=== PATIENT | female | born 1990 | race Caucasian/White ===

== ENCOUNTER 2018-06-10 02:10 | Inpatient (IN) | payer OTHER ==
[2018-06-10] MEDS ORDERED: Ondansetron 4 MG/2 ML SDV IVPUSH PRN ×2 (19:46→20:00)
[2018-06-10] MEDS ORDERED: Nalbuphine 20 MG/ML 1 ML Syringe IVPUSH PRN (19:46)
[2018-06-10] MEDS ORDERED: Sodium Chloride 0.9% 10 ML Syringe FLUSH PRN (19:46)
[2018-06-10] MEDS ORDERED: Bupivacaine/fentaNYL/NS 100 ML Bag EPIDUR SCH (20:00)
[2018-06-10] MEDS ORDERED: fentaNYL 100 MCG/2 ML SDV EPIDUR PRN (20:00)
[2018-06-10] MEDS ORDERED: ePHEDrine 50 MG/ML SDV IVPUSH PRN (20:00)
[2018-06-10] MEDS ORDERED: diphenhydrAMINE 50 MG/ML SDV IVPUSH PRN (20:00)
[2018-06-10] MEDS ORDERED: fentaNYL 100 MCG/2 ML SDV ONE (20:12)
--- NOTE | 2018-06-10 20:16 | PCM.HP ---
H&P History of Present Illness - General Date of Service: 06/10/18 Admit Problem/Dx: Admission Diagnosis/Problem Admission Diagnosis/Problem Normal Source of Information: Patient History Limitations: Reports: No Limitations - History of Present Illness Initial Comments - Free Text/Narative: Rico is a 27 y/o white female admitted for labor on 06/10/2018. Gestational age 39-3/7 weeks. LOS is set at 06/14/2018 based on LMP of 2016 and ultrasounds on 11/05/2017 and 01/26/2018. She is accompanied by daughter and significant other, Ravin. Patient is a candidate for , which she desires. Risks and benefits have been explained and patient understands and wishes to proceed. Previous two deliveries include the followin. Female born 09/15/2010 at 38 weeks gestational age in [place]. weight was 6 lbs 15 oz. Child is named Adrien. 2. Female born 03/12/2011 via at 38 weeks gestational age in [place]. C- section done due to active HSV infection. weight was 6 lbs 11 oz. Child was adopted. LMP reported on 09/01/2017. Patient was using no control at the time of conception. care was initiated on 11/04/2017. She denies any use of alcohol, tobacco, or other drugs during the . Pre- BMI was 20.8 with a weight of 121 lb. She has gained 49 lb, now weighing 170.6 lb. Fundal height and growth has been appropriate throughout course. Fundal height was 38.5 cm at last appointment, earlier today 2017. At that time cervix was dilated 2 cm, 80% effaced, soft, -3, mid position. Baby was in vertex position. Patient has been taking HSV prophylaxis since 36 weeks and denies any signs or symptoms of active infection. course has been otherwise uneventful, with 1 hr GTT being negative, GBS being negative, and no other complications. Laboratory testing showed blood type to be O-. She is rubella immune. RPR is nonreactive. Hepatitis B surface antigen and HIV assays were both negative. Chlamydia and gonorrhea both negative. Initial labs at first visit 11/04 showed hemoglobin 13.3 and platelets 240,000. Labs on 04/09/2018 showed hemoglobin 11.4 and platelets 219,000. GBS screening was negative. Allergies: None Medications: 1. Acyclovir 400 mg TID 2. vitamin tablet - stopped taking about one week ago Past Medical History: 1. Post- depression 2. Anxiety 3. Asthma 4. Genital HSV 5. Migraines Past Surgical History: 1. Family History: Mother - from an asthma attack when patient was a baby Father - currently has MS and has a history of [place] and cardiac issues for which he has had surgeries MGM - alive and well MGF - alive and well PGM - , unknown cause PGF - , unknown cause Siblings are all alive and well. No familial bleeding or clotting disorders or issues with anesthesia. Onset of Symptoms: Reports: Today - Related Data Allergies/Adverse Reactions: Allergies Allergy/AdvReac Type Severity Reaction Status Date / Time No Known Allergies Allergy Verified 06/10/18 20:12 Home Medications: Home Meds Acyclovir TID 06/10/18 [History] Past Medical History Respiratory History: Reports: Asthma Neurological History: Reports: Migraines Psychiatric History: Reports: Anxiety, Depression (post- depression) - Infectious Disease History Infectious Disease History: Reports: Herpes (Genital HSV) - Past Surgical History Female Surgical History: Reports: Section Social & Family History - Family History Cardiac: Reports: [place] (Patient's father has a history of [place] and cardiac issues) Respiratory: Reports: Asthma (Patient's mother from a severe asthma attack when patient was a baby) Neurological: Reports: MS (Patient's father has MS) - Living Situation & Occupation Living situation: Reports: with Significant Other (Ravin) Occupation: Unemployed (Currently not working) Social History Comment: Living in [place] H&P Review of Systems - Review of Systems: Review Of Systems: See Below General: Reports: No Symptoms, Fever (reports feeling febrile upon arrival to the hospital - temperature WNL was measured and this has since subsided.) HEENT: Reports: No Symptoms Pulmonary: Reports: No Symptoms. Denies: Shortness of Breath Cardiovascular: Reports: No Symptoms. Denies: Chest Pain, Palpitations Gastrointestinal: Reports: Nausea, Other (nausea, acid reflux earlier today) Genitourinary: Reports: No Symptoms Musculoskeletal: Reports: No Symptoms Skin: Reports: No Symptoms Psychiatric: Reports: No Symptoms Neurological: Reports: No Symptoms Hematologic/Lymphatic: Reports: No Symptoms Immunologic: Reports: No Symptoms Exam - Exam Exam: See Below - Exam General: Alert, Oriented, Cooperative Neck: Supple, Trachea Midline, 2 Lungs: Clear to Auscultation, Normal Respiratory Effort Cardiovascular: Regular Rate, Regular Rhythm GI/Abdominal Exam: Normal Bowel Sounds (Female) Exam: Normal External Exam, Cervical Dilatation (5 cm) Extremities: Normal Inspection, No Pedal Edema Peripheral Pulses: 4+: Radial (L), Radial (R), Posterior Tibial (L), Posterior Tibial (R) Skin: Warm, Dry, Intact Psychiatric: Alert, Normal Affect, Normal Mood - Patient Data Lab Results Last 24 hrs: Laboratory Results - last 24 hr 06/10/18 Range/Units 19:55 WBC 13.04 H (3.98-10.04) K/mm3 RBC 3.97 L (3.98-5.22) M/mm3 Hgb 11.8 (11.2-15.7) gm/L Hct 35.1 (34.1-44.9) % MCV 88.4 (79.4-94.8) fl MCH 29.7 (25.6-32.2) pg MCHC 33.6 (32.2-35.5) g/dl RDW Std Deviation 44.1 (36.4-46.3) fL Plt Count 196 (182-369) K/mm3 MPV 9.9 (9.4-12.3) fl Neut % (Auto) 78.9 H (34.0-71.1) % Lymph % (Auto) 11.7 L (19.3-51.7) % [place] % (Auto) 8.1 (4.7-12.5) % Eos % (Auto) 0.6 L (0.7-5.8) Baso % (Auto) 0.2 (0.1-1.2) % Neut # (Auto) 10.29 H (1.56-6.13) K/mm3 Lymph # (Auto) 1.52 (1.18-3.74) K/mm3 [place] # (Auto) 1.06 H (0.24-0.36) K/mm3 Eos # (Auto) 0.08 (0.04-0.36) K/mm3 Baso # (Auto) 0.02 (0.01-0.08) K/mm3 Result Diagrams: 06/10/18 19:55 Problem List Initiated/Reviewed/Updated: Yes Orders Last 24hrs: Active Orders 24 hr Category Date Time Status Patient Status [ADT] Routine ADT 06/10/18 19:46 Active Activity as Tolerated [RC] PFP Care 06/10/18 19:46 Active Communication Order [RC] ASDIRECTED Care 06/10/18 19:46 Active Communication Order [RC] ASDIRECTED Care 06/10/18 19:46 Active Heart Tones [RC] ASDIRECTED Care 06/10/18 19:47 Active Non Stress Test [RC] PER UNIT ROUTINE Care 06/10/18 19:46 Active Notify Provider [RC] ASDIRECTED Care 06/10/18 20:00 Active Notify Provider [RC] PFP Care 06/10/18 19:46 Active Notify Provider [RC] PRN Care 06/10/18 19:46 Active Peripheral IV Care [RC] . DIRECTED Care 06/10/18 19:47 Active Pump Management, Intrathecal [RC] ASDIRECTED Care 06/10/18 19:47 Active Verify Patient Consent Obtain [RC] ASDIRECTED Care 06/10/18 19:46 Active Vital Signs [RC] PER UNIT ROUTINE Care 06/10/18 19:46 Active Clear Liquid Diet [DIET] Diet 06/10/18 Dinner Active RAPID PLASMA REAGIN,RPR [CHEM] Routine Lab 06/10/18 19:46 Ordered TYPE AND SCREEN [BBK] Stat Lab 06/10/18 19:55 Received Bupivacaine/fentaNYL/NS [fentaNYL/Bupivacaine/NS 2 MCG- Med 06/10/18 20:00 Pending 0.125% 100 ML] 100 ml EPIDUR ASDIRECTED Lactated Ringers [Ringers, Lactated] 1,000 ml Med 06/10/18 20:00 Ordered IV ASDIRECTED Nalbuphine [Nubain] Med 06/10/18 19:46 Ordered 10 mg IVPUSH Q2H PRN Ondansetron [Zofran] Med 06/10/18 20:00 Ordered 4 mg IVPUSH ONETIME PRN Ondansetron [Zofran] Med 06/10/18 19:46 Ordered 4 mg IVPUSH Q4H PRN Sodium Chloride 0.9% [Saline Flush] Med 06/10/18 19:46 Ordered 10 ml FLUSH ASDIRECTED PRN diphenhydrAMINE [Benadryl] Med 06/10/18 20:00 Ordered 25 mg IVPUSH Q6H PRN ePHEDrine [ePHEDrine Sulfate] Med 06/10/18 20:00 Ordered 5 mg IVPUSH ASDIRECTED PRN fentaNYL [Sublimaze] Med 06/10/18 20:00 Ordered 100 mcg EPIDUR ONETIME PRN Electronic Heart Tones Ext w TOCO [WOMSER] Oth 06/10/18 19:46 Ordered Routine Electronic Heart Tones Internal [WOMSER] Per Unit Oth 06/10/18 19:46 Ordered Routine Peripheral IV Insertion Adult [OM.PC] Routine Oth 06/10/18 19:46 Ordered Resuscitation Status Routine Resus Stat 06/10/18 19:46 Ordered Medication Orders Diphenhydramine HCl (Benadryl) 25 mg IVPUSH Q6H PRN PRN Reason: Pruritis Ephedrine Sulfate (Ephedrine Sulfate) 5 mg IVPUSH ASDIRECTED PRN PRN Reason: Hypotension Fentanyl (Sublimaze) 100 mcg EPIDUR ONETIME PRN PRN Reason: Pain Fentanyl/Bupivacaine HCl (Fentanyl/Bupivacaine/Ns 2 Mcg-0.125% 100 Ml) 100 ml EPIDUR ASDIRECTED CARLOS Lactated Ringer's (Ringers, Lactated) 1,000 mls @ 100 mls/hr IV ASDIRECTED CARLOS Nalbuphine HCl (Nubain) 10 mg IVPUSH Q2H PRN PRN Reason: pain Ondansetron HCl (Zofran) 4 mg IVPUSH Q4H PRN PRN Reason: Nausea/Vomiting Ondansetron HCl (Zofran) 4 mg IVPUSH ONETIME PRN PRN Reason: Nausea/Vomiting Sodium Chloride (Saline Flush) 10 ml FLUSH ASDIRECTED PRN PRN Reason: Keep Vein Open Assessment/Plan Comment:: Assessment: 1. 39-3/7 week female presents in active labor with cervix dilated 5cm. 2. History of previous due to active HSV infection 3. HSV prophylaxis since 36 weeks - 400 mg acyclovir TID. No signs or symptoms of HSV. 4. GBS - 5. Intends to bottle feed 6. Blood type O- 7. Rubella immune Plan: 1. Anticipate 2. Epidural prn for analgesia 3. CBC, type, and screen 4. Near continuous monitoring 5. Gather consent for and 6. Alert surgery and anesthesia for possibility of 7. Routine post- care following delivery Donna Barrera, MS-3. Dr. Julio Bailey has examined the patient and reviewed the note.
--- NOTE | 2018-06-10 20:42 | PCM.PREANE ---
Preanesthetic Assessment - Anesthesia/Transfusion/Family Hx Anesthesia History: Prior Anesthesia Without Reaction Family History of Anesthesia Reaction: No - Review of Systems General: No Symptoms Pulmonary: No Symptoms, Other (Asthma. Albuterol inhaler PRN. ) Cardiovascular: No Symptoms Gastrointestinal: No Symptoms Neurological: No Symptoms Other: Reports: Depression, Anxiety - Physical Assessment Pulse: 105 O2 Sat by Pulse Oximetry: 99 Respiratory Rate: 18 Blood Pressure: 128/70 Temperature: 37.3 C Height: 1.63 m Weight: 77.247 kg ASA Class: 2 Mental Status: Alert & Oriented x3 Airway Class: Mallampati = 2 Dentition: Reports: Normal Dentition Thyro-Mental Finger Breadths: 3 Mouth Opening Finger Breadths: 3 ROM/Head Extension: Full Lungs: Clear to Auscultation, Normal Respiratory Effort Cardiovascular: Regular Rate, Regular Rhythm - Lab Values: Laboratory Last Values WBC 13.04 K/mm3 (3.98-10.04) H 06/10/18 19:55 RBC 3.97 M/mm3 (3.98-5.22) L 06/10/18 19:55 Hgb 11.8 gm/L (11.2-15.7) 06/10/18 19:55 Hct 35.1 % (34.1-44.9) 06/10/18 19:55 MCV 88.4 fl (79.4-94.8) 06/10/18 19:55 MCH 29.7 pg (25.6-32.2) 06/10/18 19:55 MCHC 33.6 g/dl (32.2-35.5) 06/10/18 19:55 RDW Std Deviation 44.1 fL (36.4-46.3) 06/10/18 19:55 Plt Count 196 K/mm3 (182-369) 06/10/18 19:55 MPV 9.9 fl (9.4-12.3) 06/10/18 19:55 Neut % (Auto) 78.9 % (34.0-71.1) H 06/10/18 19:55 Lymph % (Auto) 11.7 % (19.3-51.7) L 06/10/18 19:55 [place] % (Auto) 8.1 % (4.7-12.5) 06/10/18 19:55 Eos % (Auto) 0.6 (0.7-5.8) L 06/10/18 19:55 Baso % (Auto) 0.2 % (0.1-1.2) 06/10/18 19:55 Neut # (Auto) 10.29 K/mm3 (1.56-6.13) H 06/10/18 19:55 Lymph # (Auto) 1.52 K/mm3 (1.18-3.74) 06/10/18 19:55 [place] # (Auto) 1.06 K/mm3 (0.24-0.36) H 06/10/18 19:55 Eos # (Auto) 0.08 K/mm3 (0.04-0.36) 06/10/18 19:55 Baso # (Auto) 0.02 K/mm3 (0.01-0.08) 06/10/18 19:55 - Allergies Allergies/Adverse Reactions: Allergies Allergy/AdvReac Type Severity Reaction Status Date / Time No Known Allergies Allergy Verified 06/10/18 20:12 - Acknowledgements Anesthesia Type Planned: Epidural Pt an Appropriate Candidate for the Planned Anesthesia: Yes Alternatives and Risks of Anesthesia Discussed w Pt/Guardian: Yes Pt/Guardian Understands and Agrees with Anesthesia Plan: Yes PreAnesthesia Questionnaire Respiratory History: Reports: Asthma Neurological History: Reports: Migraines Psychiatric History: Reports: Anxiety, Depression - Infectious Disease History Infectious Disease History: Reports: Herpes (Genital HSV) - HOME MEDS Home Medications: Home Meds Acyclovir TID 06/10/18 [History] Vit No.129/Iron/FA [ Tablet] 1 each PO 06/10/18 [History] - CURRENT (IN HOUSE) MEDS Current Meds: Current Medications Diphenhydramine HCl (Benadryl) 25 mg IVPUSH Q6H PRN PRN Reason: Pruritis Ephedrine Sulfate (Ephedrine Sulfate) 5 mg IVPUSH ASDIRECTED PRN PRN Reason: Hypotension Fentanyl (Sublimaze) 100 mcg EPIDUR ONETIME PRN PRN Reason: Pain Last Admin: 06/10/18 20:36 Dose: 100 mcg Fentanyl/Bupivacaine HCl (Fentanyl/Bupivacaine/Ns 2 Mcg-0.125% 100 Ml) 100 ml EPIDUR ASDIRECTED CARLOS Last Admin: 06/10/18 20:36 Dose: 100 ml Lactated Ringer's (Ringers, Lactated) 1,000 mls @ 100 mls/hr IV ASDIRECTED CARLOS Nalbuphine HCl (Nubain) 10 mg IVPUSH Q2H PRN PRN Reason: pain Ondansetron HCl (Zofran) 4 mg IVPUSH Q4H PRN PRN Reason: Nausea/Vomiting Ondansetron HCl (Zofran) 4 mg IVPUSH ONETIME PRN PRN Reason: Nausea/Vomiting Sodium Chloride (Saline Flush) 10 ml FLUSH ASDIRECTED PRN PRN Reason: Keep Vein Open
[2018-06-10] MEDS: Lactated Ringers 1,000 ML IV SCH ×3 (21:08→21:10)
[2018-06-10] MEDS ORDERED: Bupivacaine 0.25% 10 ML SDV ONE (22:00)
[2018-06-10] MEDS ORDERED: Aluminum Hydroxide/Magnesium Hydroxide/Simethicone Susp 30 ML Cup PO PRN (22:10)
[2018-06-10] MEDS ORDERED: Oxytocin/Lactated Ringers 10 UNIT/1,000 ML BAG IV SCH (23:30)
--- NOTE | 2018-06-11 02:39 | PCM.SN ---
- Free Text/Narrative Note: Rico is a 27-year-old 3 now para 3003 white female who was admitted on the evening of 06/10/2018 in active labor. She is petey every 3-5 minutes and was dilated to 5 cm. She had a previous vaginal and last was delivered by section for HSV positive findings at the time of onset of labor. With this labor she slowly progressed to complete cervical dilation and at 0210 hours patient delivered a viable, vidales, female infant with Apgars of 8 and 9, weight of 3560 g (7 pounds 13.6 ounces), length of 20.4 inches in an anterior position. Over an intact perineum. The baby was placed on mom's abdomen. The cord was clamped 2 and then was cut by the baby's father. Cord blood was obtained. The umbilical cord had 3 vessels. Pitocin per IV was started after delivery of baby to facilitate increase in uterine tone and decreased likelihood of bleeding. The placenta delivered in a [place] presentation,. Complete and intact and was discarded per patient desire. Estimated blood loss was 100 mL. Patient plans to bottlefeed. Condition: Good
[2018-06-11] MEDS ORDERED: Lanolin 100% Cream 7 GM Tube TOP PRN (02:53)
[2018-06-11] MEDS ORDERED: Witch Hazel Medicated Pads 100/Jar TOP PRN (02:53)
[2018-06-11] MEDS ORDERED: Acetaminophen 325 MG Tab PO PRN (02:53)
[2018-06-11] MEDS ORDERED: Docusate Sodium 100 MG Cap PO PRN (02:53)
[2018-06-11] MEDS ORDERED: Benzocaine/Menthol 20%-0.5% Spray 56 GM Canister TOP PRN (02:53)
[2018-06-11] MEDS: Ibuprofen 600 MG Tab PO PRN ×3 (03:23→20:52)
[2018-06-11] MEDS ORDERED: Oxytocin/Lactated Ringers 10 UNIT/1,000 ML BAG IV SCH ×2 (03:30)
--- NOTE | 2018-06-11 09:48 | PCM.SN ---
- Free Text/Narrative Note: note: Patient is doing well in the period. Minimal lochia, voiding well, ambulated without problems. Nursing without concerns. Patient is afebrile, vital signs are stable Abdomen is flat, soft, uterus is below the umbilicus and is firm and nontender. Legs are nontender. Assessment: recovery going well. Plan: Routine care. Patient be discharged home within the next 24-48 hours.
[2018-06-12] MEDS: Ibuprofen 600 MG Tab PO PRN (02:58)
--- NOTE | 2018-06-12 10:24 | PCM.DCSUM1 ---
Discharge Summary - Hospital Course Free Text/Narrative:: Rico is a 27-year-old 3 now para 3003 white female who was admitted on the evening of 06/10/2018 in active labor. She is petey every 3-5 minutes and was dilated to 5 cm. She had a previous vaginal and last was delivered by section for HSV positive findings at the time of onset of labor. With this labor she slowly progressed to complete cervical dilation and at 0210 hours patient delivered a viable, vidales, female with Apgars of 8 and 9, weight of 3560 g (7 pounds 13.6 ounces), length of 20.4 inches in an anterior position. Over an intact perineum. The baby was placed on mom's abdomen. The cord was clamped 2 and then was cut by the baby's father. Cord blood was obtained. The umbilical cord had 3 vessels. Pitocin per IV was started after delivery of baby to facilitate increase in uterine tone and decreased likelihood of bleeding. The placenta delivered in a [place] presentation,. Complete and intact and was discarded per patient desire. Estimated blood loss was 100 mL. Patient plans to bottlefeed. Condition: Good HPI Initial Comments: Rico is a 27-year-old 3 now para 3003 white female who was admitted on the evening of 06/10/2018 in active labor. She is petey every 3-5 minutes and was dilated to 5 cm. She had a previous vaginal and last was delivered by section for HSV positive findings at the time of onset of labor. With this labor she slowly progressed to complete cervical dilation and at 0210 hours patient delivered a viable, vidales, female infant with Apgars of 8 and 9, weight of 3560 g (7 pounds 13.6 ounces), length of 20.4 inches in an anterior position. Over an intact perineum. The baby was placed on mom's abdomen. The cord was clamped 2 and then was cut by the baby's father. Cord blood was obtained. The umbilical cord had 3 vessels. Pitocin per IV was started after delivery of baby to facilitate increase in uterine tone and decreased likelihood of bleeding. The placenta delivered in a [place] presentation,. Complete and intact and was discarded per patient desire. Estimated blood loss was 100 mL. Patient plans to bottlefeed. Condition: Good Brief History: Rico is a 27-year-old 3 now para 3003 white female who was admitted on the evening of 06/10/2018 in active labor. She is petey every 3-5 minutes and was dilated to 5 cm. She had a previous vaginal and last was delivered by section for HSV positive findings at the time of onset of labor. With this labor she slowly progressed to complete cervical dilation and at 0210 hours patient delivered a viable, vidales, female with Apgars of 8 and 9, weight of 3560 g (7 pounds 13.6 ounces), length of 20.4 inches in an anterior position. Over an intact perineum. The baby was placed on mom's abdomen. The cord was clamped 2 and then was cut by the baby's father. Cord blood was obtained. The umbilical cord had 3 vessels. Pitocin per IV was started after delivery of baby to facilitate increase in uterine tone and decreased likelihood of bleeding. The placenta delivered in a [place] presentation,. Complete and intact and was discarded per patient desire. Estimated blood loss was 100 mL. Patient plans to bottlefeed. Condition : Good Diagnosis: Stroke: No - Discharge Data Discharge Date: 06/12/18 Discharge Disposition: Home, Self-Care 01 Condition: Good - Discharge Diagnosis/Problem(s) (1) (vaginal after ) SNOMED Code(s): 626154679 ICD Code: O34.219 - MATERNAL CARE FOR UNSP TYPE SCAR FROM PREVIOUS DEL Status: Acute Current Visit: Yes (2) H/O section complicating SNOMED Code(s): 267006272, 615547919 ICD Code: O34.219 - MATERNAL CARE FOR UNSP TYPE SCAR FROM PREVIOUS DEL Status: Acute Current Visit: Yes (3) 39 weeks gestation of SNOMED Code(s): 24487523 ICD Code: Z3A.39 - 39 WEEKS GESTATION OF Status: Acute Current Visit: Yes - Patient Summary/Data Complications: None Consults: None Hospital Course: Uneventful - Patient Instructions Diet: Usual Diet as Tolerated Driving: May Drive Today Showering/Bathing: May Shower Notify Provider of: Fever, Increased Pain, Swelling and Redness, Drainage, Nausea and/or Vomiting - Discharge Plan *PRESCRIPTION DRUG MONITORING PROGRAM REVIEWED*: Not Applicable *COPY OF PRESCRIPTION DRUG MONITORING REPORT IN PATIENT EVIE: Not Applicable Home Medications: Home Meds Acyclovir TID 06/10/18 [History] Acetaminophen [Tylenol] 650 mg PO Q4H PRN tablet 06/12/18 [Rx] Benzocaine/Menthol [Dermoplast Pain Relief [place]] 1 spray TOP ASDIRECTED PRN canister 06/12/18 [Rx] Docusate Sodium [Colace] 100 mg PO BID PRN cap 06/12/18 [Rx] Ibuprofen [Motrin] 600 mg PO Q4H PRN tablet 06/12/18 [Rx] Esequiel Rae [Tucks] 1 pad TOP ASDIRECTED PRN pad 06/12/18 [Rx] Patient Handouts: Home Care Instructions for Mom Referrals: Julio Bailey MD [Primary Care Provider] - (Patient to call Thursday to make an appointment for 2 weeks follow-up check) - Discharge Summary/Plan Comment DC Time >30 min.: No - Patient Data Vitals - Most Recent: Last Vital Signs Temp 97.2 F 06/12/18 09:14 Pulse 93 06/12/18 09:14 Resp 18 06/12/18 09:14 BP 115/75 06/12/18 09:14 Pulse Ox 96 06/12/18 09:14 Weight - Most Recent: 170 lb 4.8 oz I&O - Last 24 hours: Intake & Output 06/11/18 06/12/18 06/12/18 22:59 06:59 14:59 Intake Total 240 Balance 240 Lab Results - Last 24 hrs: Laboratory Results - last 24 hr 06/10/18 06/12/18 Range/Units 19:55 05:50 WBC 11.66 H (3.98-10.04) K/mm3 RBC 3.72 L (3.98-5.22) M/mm3 Hgb 10.9 L (11.2-15.7) gm/L Hct 33.6 L (34.1-44.9) % MCV 90.3 (79.4-94.8) fl MCH 29.3 (25.6-32.2) pg MCHC 32.4 (32.2-35.5) g/dl RDW Std Deviation 44.9 (36.4-46.3) fL Plt Count 180 L (182-369) K/mm3 MPV 10.0 (9.4-12.3) fl RPR Non-reactive (NONREACTIVE) Med Orders - Current: Current Medications Acetaminophen (Tylenol) 650 mg PO Q4H PRN PRN Reason: mild pain or fever Benzocaine/Menthol (Dermoplast Pain Relief [place]) 0 gm TOP ASDIRECTED PRN PRN Reason: Perineal Comfort Measure Last Admin: 06/11/18 03:23 Dose: 1 canister Docusate Sodium (Colace) 100 mg PO BID PRN PRN Reason: Constipation Emollient Ointment (Lansinoh Hpa) 0 gm TOP ASDIRECTED PRN PRN Reason: Sore Nipples Oxytocin/Lactated Ringer's (Pitocin In Lr 10 Units/1,000 Ml) 10 unit in 1,000 mls @ 500 mls/hr IV TITRATE CARLOS; Protocol Ibuprofen (Motrin) 600 mg PO Q4H PRN PRN Reason: Mild pain or fever Last Admin: 06/12/18 02:58 Dose: 600 mg Witch Rae (Tucks) 1 pad TOP ASDIRECTED PRN PRN Reason: Hemorrhoid pain Last Admin: 06/11/18 03:23 Dose: 1 tub Discontinued Medications Al Hydroxide/Mg Hydroxide (Mag-Al Plus) 30 ml PO Q4H PRN PRN Reason: Heartburn Bupivacaine HCl (Sensorcaine-Mpf 0.25%) 10 ml .ROUTE .STK-MED ONE Stop: 06/10/18 22:01 Diphenhydramine HCl (Benadryl) 25 mg IVPUSH Q6H PRN PRN Reason: Pruritis Ephedrine Sulfate (Ephedrine Sulfate) 5 mg IVPUSH ASDIRECTED PRN PRN Reason: Hypotension Fentanyl (Sublimaze) 100 mcg EPIDUR ONETIME PRN PRN Reason: Pain Last Admin: 06/10/18 20:36 Dose: 100 mcg Fentanyl (Sublimaze) Confirm Administered Dose 100 mcg .ROUTE .STK-MED ONE Stop: 06/10/18 20:13 Last Admin: 06/11/18 03:25 Dose: Not Given Fentanyl/Bupivacaine HCl (Fentanyl/Bupivacaine/Ns 2 Mcg-0.125% 100 Ml) 100 ml EPIDUR ASDIRECTED CARLOS Last Admin: 06/10/18 20:36 Dose: 100 ml Lactated Ringer's (Ringers, Lactated) 1,000 mls @ 100 mls/hr IV ASDIRECTED CARLOS Last Admin: 06/10/18 21:10 Dose: 100 mls/hr Oxytocin/Lactated Ringer's (Pitocin In Lr 10 Units/1,000 Ml) 10 unit in 1,000 mls @ 12 mls/hr IV TITRATE CARLOS; Protocol Nalbuphine HCl (Nubain) 10 mg IVPUSH Q2H PRN PRN Reason: pain Ondansetron HCl (Zofran) 4 mg IVPUSH Q4H PRN PRN Reason: Nausea/Vomiting Last Admin: 06/10/18 22:09 Dose: 4 mg Ondansetron HCl (Zofran) 4 mg IVPUSH ONETIME PRN PRN Reason: Nausea/Vomiting Sodium Chloride (Saline Flush) 10 ml FLUSH ASDIRECTED PRN PRN Reason: Keep Vein Open
== END 2018-06-12 10:28 | disposition home or self-care (01) | DRG 774 ==
LOC: JD.OB 02:10 → OBSVTOIN 06-11 02:10 → JD.OB 06-11 02:11
PROVIDERS: ADMIT Obstetrics & Gynecology; ATTEND Obstetrics & Gynecology
PROC: 00HU33Z Insertion of Infusion Device into Spinal Canal, Percutaneous Approach (ICD-10-PCS; 2018-06-10)
PROC: 3E0R3BZ Introduction of Anesthetic Agent into Spinal Canal, Percutaneous Approach (ICD-10-PCS; 2018-06-10)
PROC: 6A550ZT Pheresis of Cord Blood Stem Cells, Single (ICD-10-PCS; principal; 2018-06-11)
PROC: 10E0XZZ Delivery of Products of Conception, External Approach (ICD-10-PCS; principal; 2018-06-11)
DX: O34.211 Maternal care for low transverse scar from previous cesarean delivery (principal); O98.32 Other infections with a predominantly sexual mode of transmission complicating childbirth; Z37.0 Single live birth; N85.8 Other specified noninflammatory disorders of uterus; Z3A.38 38 weeks gestation of pregnancy; A60.00 Herpesviral infection of urogenital system, unspecified; Z79.899 Other long term (current) drug therapy; O99.344 Other mental disorders complicating childbirth; F41.9 Anxiety disorder, unspecified
CPT/HCPCS: 36415; 51702; 59025; 59409; 85025; 85027; 85461; 86592; 86850; 86870; 86900; 86901; A9270-GY; J2405; J2790; J3010; J3490; J7120